=== PATIENT | female | born 1995 | race Caucasian/White ===

== ENCOUNTER 2018-05-05 09:12 | Emergency (ER) | payer OTHER ==
[~2018-05-05] VITALS: Ht 160 cm; Wt 52.6 kg
--- NOTE | 2018-05-05 09:16 | NUR ---
PT AMBULATED TO ER BED 01
[2018-05-05 09:22] VITALS: BP 123/71
--- NOTE | 2018-05-05 09:28 | NUR ---
BIB FATHER C/O THROAT & EARS PAIN X 1 WEEK. LUMP ANTEROIR BILATERAL NECK. DENIES TRAUMA ,COUGH OR N/V/D. C/O DIFFICULT TO BREATH & SWALLOW. MED HX: DENIES. PATIENT STATES PAIN OF 10/10 AT THIS TIME. PATIENT POSITIONED FOR COMFORT; HOB ELEVATED; BEDRAILS UP X2; BED DOWN. ER MD MADE AWARE OF PT STATUS.
--- NOTE | 2018-05-05 10:34 | NUR ---
Patient being evaluated by DR DE LA FUENTE at bedside.
[2018-05-05] MEDS ORDERED: IBUPROFEN 400 MG TAB PO ONE (10:35)
--- NOTE | 2018-05-05 10:44 | NUR ---
STREP SWAB DONE; SPECIMEN SENT TO LAB.
--- NOTE | 2018-05-05 10:45 | NUR ---
PT REFUSED IBUPROFEN PO. WANT LIQUID PAIN MED. NOTIFIED DR DE LA FUENTE.
[2018-05-05] MEDS ORDERED: IBUPROFEN CHILDRENS 100 MG/5 ML UDC PO ONE (11:05)
--- NOTE | 2018-05-05 11:42 | NUR ---
REPETED STREP SWAB DONE; SPECIMEN SENT TO LAB.
[2018-05-05 12:32] VITALS: BP 123/71
--- NOTE | 2018-05-05 12:32 | NUR ---
Patient discharged with v/s stable. Written and verbal after care instructions given and explained. Patient alert, oriented and verbalized understanding of instructions. Ambulatory with steady gait. All questions addressed prior to discharge. ID band removed. Patient advised to follow up with PMD. Rx of children's motrin given. Patient educated on indication of medication including possible reaction and side effects. Opportunity to ask questions provided and answered.
== END 2018-05-05 12:32 | disposition home or self-care (01) ==
LOC: MED 09:12
DX: J02.8 Acute pharyngitis due to other specified organisms (principal); B97.89 Other viral agents as the cause of diseases classified elsewhere
CPT/HCPCS: 87081; 99283